=== PATIENT | female | born 1980 | race Caucasian/White ===

== ENCOUNTER 2016-06-23 09:11 | Day surgery (SDC) | payer BC ==
[2016-06-23 09:34] LABS: BASOPHIL 0.9 % (0-2.0); MCH 27.7 pg (25.7-33.7); MCHC 33.3 g/dl (32.0-36.0); MEAN CELL VOLUME 83.2 fl (80-96); MEAN PLT VOLUME 6.4 fl (7.5-11.1); NEUTROPHILS 48.4 % (42.8-82.8); PLATELET COUNT 293 K/MM3 (134-434); RDW 15.8 % (11.6-15.6); WHITE BLOOD COUNT 5.9 K/mm3 (4.0-10.0)
[2016-06-23] MEDS ORDERED: ACETAMINOPHEN 325 MG TABLET (FP) PO ONE (10:00)
[2016-06-23] MEDS ORDERED: SODIUM CHLORIDE 250 ML IV ONE (10:00)
[2016-06-23] MEDS ORDERED: diphenhydrAMINE HCL 25 MG CAPSULE (FP) PO ONE (10:00)
[2016-06-23] MEDS ORDERED: HYDROCORTISONE SOD SUCCINATE 100 MG/2 ML VIAL IVPB ONE (10:00)
[2016-06-23 10:28] LABS: C-REACTIVE PROTEIN 0.6 MG/DL (0.00-0.3); CALCIUM 8.5 mg/dL (8.5-10.1); CREATININE 0.6 mg/dL (0.55-1.02)
[2016-06-23] MEDS ORDERED: INFLIXIMAB IVPB ONE (10:30)
[2016-06-23] MEDS ORDERED: SODIUM CHLORIDE IVPB ONE (10:30)
[2016-06-23 14:29] VITALS: TEMP 98.4
[2016-06-23 15:19] VITALS: BP 108/71; PULSE 86
== END 2016-06-23 16:00 | disposition home or self-care (01) ==
LOC: JINFUSION 09:11 → J7W 09:12 → JINFUSION 16:00
PROVIDERS: ATTEND Internal Medicine Gastroenterology
DX: K51.90 Ulcerative colitis, unspecified, without complications (principal)
CPT/HCPCS: 96361; 96413; 96415; J1745; 36415; 80048; 85025; 86140; 96365; 96366

== ENCOUNTER 2016-07-19 08:00 | Day surgery (SDC) | payer BC ==
[2016-07-19 08:40] VITALS: BMI 28.5
[2016-07-19] MEDS ORDERED: PROPOFOL 20 ML ONE ×2 (08:41)
[2016-07-19 09:52] VITALS: TEMP 98.2
[2016-07-19 09:54] VITALS: BP 101/56
[2016-07-19 10:03] VITALS: PULSE 75
--- NOTE | 2016-07-22 13:21 | PATH ---
Surgical Pathology Report Patient Name: WILLY ALCANTARA [facility]. Rec. #: [id number] /Age/Gender: 1980 (Age: 36) / F Account: [id number] Location: ASU-ENDOSCOPY Taken: 07/19/2016 Received: 07/19/2016 Reported: 07/22/2016 Physicians: Ryan Godfrey M.D. Specimen(s) Received A: BX ILEAL RECTAL ANASTOMOSIS B: BX RECTAL POUCH & POLYP Clinical History Ulcerative colitis Ulcerative proctitis, rectal polyp, normal ileum Final Diagnosis A. ILEAL-RECTAL ANASTOMOSIS, BIOPSY: ULCERATED COLONIC MUCOSA WITH ACTIVE MARKED CHRONIC COLITIS WITH INFLAMED GRANULATION TISSUE AND ARCHITECTURAL DISTORTION. NO EVIDENCE OF GRANULOMATA OR DYSPLASIA B. RECTAL POUCH AND POLYP, BIOPSY: ULCERATED RECTAL MUCOSA WITH ACTIVE MARKED CHRONIC PROCTITIS WITH INFLAMED GRANULATION TISSUE AND ARTIFICIAL DISTORTION. POLYPOID FRAGMENT OF INFLAMED AND ULCERATED GRANULATION TISSUE. NO EVIDENCE OF GRANULOMATA OR DYSPLASIA. Electronically Signed Milton Judge M.D. Gross Description A. Received in formalin, labeled "biopsy ileo-rectal anastomosis" are 2 wood, irregular portions of soft tissue measuring 0.2 and 0.3 cm in greatest dimension. The specimens are submitted in toto in one cassette. B. Received in formalin, labeled "rectal pouch and polyp" are 3 wood, irregular portions of soft tissue ranging from 0.1-0.4 cm in greatest dimension. The specimens are submitted in toto in one cassette. 07/19/201607/19/2016
== END 2016-07-19 10:03 | disposition home or self-care (01) ==
LOC: JASU-ENDO 08:00
PROVIDERS: ATTEND Internal Medicine Gastroenterology
PROC: 0DBP8ZX Excision of Rectum, Via Natural or Artificial Opening Endoscopic, Diagnostic (ICD-10-PCS; principal; 2016-07-19 08:30)
DX: K51.90 Ulcerative colitis, unspecified, without complications (principal); Z98.0 Intestinal bypass and anastomosis status; K62.1 Rectal polyp
CPT/HCPCS: 84703; 88305-TC

== ENCOUNTER 2016-07-20 10:02 | Day surgery (SDC) | payer BC ==
[2016-07-20 11:19] LABS: BASOPHIL 0.4 % (0-2.0); EOSINOPHIL 0.9 % (0-4.5); MCH 27.5 pg (25.7-33.7); MCHC 33.1 g/dl (32.0-36.0); MEAN CELL VOLUME 83.2 fl (80-96); MEAN PLT VOLUME 6.2 fl (7.5-11.1); NEUTROPHILS 56.5 % (42.8-82.8); PLATELET COUNT 327 K/MM3 (134-434); RDW 15.9 % (11.6-15.6); WHITE BLOOD COUNT 7.5 K/mm3 (4.0-10.0)
[2016-07-20] MEDS ORDERED: HYDROCORTISONE SOD SUCCINATE 100 MG/2 ML VIAL IVPB ONE (11:30)
[2016-07-20] MEDS ORDERED: ACETAMINOPHEN 325 MG TABLET (FP) PO ONE (11:30)
[2016-07-20] MEDS ORDERED: diphenhydrAMINE HCL 50 MG CAPSULE PO ONE (11:30)
[2016-07-20 11:42] LABS: CALCIUM 8.9 mg/dL (8.5-10.1); CREATININE 0.5 mg/dL (0.55-1.02)
[2016-07-20] MEDS ORDERED: INFLIXIMAB IVPB ONE (12:00)
[2016-07-20] MEDS ORDERED: SODIUM CHLORIDE IVPB ONE (12:00)
[2016-07-20] MEDS ORDERED: diphenhydrAMINE HCL 25 MG CAPSULE (FP) PO ONE (12:36)
[2016-07-20 14:51] VITALS: TEMP 97.7
[2016-07-20 17:08] VITALS: BP 119/72; PULSE 83
== END 2016-07-20 17:11 | disposition home or self-care (01) ==
LOC: JINFUSION 10:02 → J7W 10:30 → JINFUSION 17:11
PROVIDERS: ATTEND Internal Medicine Gastroenterology
DX: K51.90 Ulcerative colitis, unspecified, without complications (principal)
CPT/HCPCS: 96361; 96413; 96415; J1745; 36415; 80048; 85025

== ENCOUNTER 2016-08-17 09:21 | Day surgery (SDC) | payer BC ==
[2016-08-17 09:53] LABS: BASOPHIL 0.6 % (0-2.0); EOSINOPHIL 2.1 % (0-4.5); MCH 27.7 pg (25.7-33.7); MCHC 33.2 g/dl (32.0-36.0); MEAN CELL VOLUME 83.4 fl (80-96); MEAN PLT VOLUME 6.6 fl (7.5-11.1); NEUTROPHILS 58.7 % (42.8-82.8); PLATELET COUNT 319 K/MM3 (134-434); RDW 15.2 % (11.6-15.6); WHITE BLOOD COUNT 6.6 K/mm3 (4.0-10.0)
[2016-08-17 10:14] LABS: CALCIUM 8.9 mg/dL (8.5-10.1); CREATININE 0.5 mg/dL (0.55-1.02)
[2016-08-17] MEDS ORDERED: ACETAMINOPHEN 500 MG TABLET (FP) PO ONE (10:30)
[2016-08-17] MEDS ORDERED: HYDROCORTISONE SOD SUCCINATE 100 MG/2 ML VIAL IVPB ONE (10:30)
[2016-08-17] MEDS ORDERED: diphenhydrAMINE HCL 25 MG CAPSULE (FP) PO ONE (10:30)
[2016-08-17] MEDS ORDERED: SODIUM CHLORIDE 250 ML IV SCH (10:30)
[2016-08-17] MEDS ORDERED: SODIUM CHLORIDE IVPB ONE (11:00)
[2016-08-17] MEDS ORDERED: INFLIXIMAB IVPB ONE (11:00)
[2016-08-17 15:55] VITALS: BP 108/62
[2016-08-17 15:56] VITALS: PULSE 62; TEMP 98.2
== END 2016-08-17 14:22 | disposition home or self-care (01) ==
LOC: JCHEMO 09:21 → J7W 09:22 → JCHEMO 14:22
PROVIDERS: ATTEND Internal Medicine Gastroenterology
PROC: 3E03305 Introduction of Other Antineoplastic into Peripheral Vein, Percutaneous Approach (ICD-10-PCS; principal; 2016-08-17)
PROC: 3E0337Z Introduction of Electrolytic and Water Balance Substance into Peripheral Vein, Percutaneous Approach (ICD-10-PCS; 2016-08-17)
PROC: 3E033GC Introduction of Other Therapeutic Substance into Peripheral Vein, Percutaneous Approach (ICD-10-PCS; 2016-08-17)
DX: K51.90 Ulcerative colitis, unspecified, without complications (principal)
CPT/HCPCS: 96361; 96367; 96413; 96415; J1720; J1745; J7030; 36415; 80048; 85025; 86140

== ENCOUNTER 2016-09-13 10:02 | Day surgery (SDC) | payer BC ==
[2016-09-13 10:28] LABS: BASOPHIL 0.5 % (0-2.0); MCH 28.5 pg (25.7-33.7); MCHC 33.7 g/dl (32.0-36.0); MEAN CELL VOLUME 84.5 fl (80-96); MEAN PLT VOLUME 6.7 fl (7.5-11.1); NEUTROPHILS 63.2 % (42.8-82.8); PLATELET COUNT 260 K/MM3 (134-434); RDW 15.3 % (11.6-15.6); WHITE BLOOD COUNT 6.3 K/mm3 (4.0-10.0)
[2016-09-13] MEDS ORDERED: SODIUM CHLORIDE 250 ML IV ONE (10:30)
[2016-09-13 10:54] LABS: CALCIUM 9.1 mg/dL (8.5-10.1); COCKROFT - GAULT 183.855; CREATININE 0.5 mg/dL (0.55-1.02)
[2016-09-13] MEDS ORDERED: diphenhydrAMINE HCL 25 MG CAPSULE (FP) PO ONE (11:00)
[2016-09-13] MEDS ORDERED: ACETAMINOPHEN 500 MG TABLET (FP) PO ONE (11:00)
[2016-09-13] MEDS ORDERED: HYDROCORTISONE SOD SUCCINATE 100 MG/2 ML VIAL IVPB ONE (11:00)
[2016-09-13] MEDS ORDERED: SODIUM CHLORIDE IVPB ONE (11:30)
[2016-09-13] MEDS ORDERED: INFLIXIMAB IVPB ONE (11:30)
[2016-09-13 15:58] VITALS: BP 119/76; PULSE 98; TEMP 98.3
== END 2016-09-13 16:03 | disposition home or self-care (01) ==
LOC: JCHEMO 10:02 → J7W 10:13 → JCHEMO 16:03
PROVIDERS: ATTEND Internal Medicine Gastroenterology
DX: K51.90 Ulcerative colitis, unspecified, without complications (principal)
CPT/HCPCS: 96361; 96413; 96415; J1745; 36415; 80048; 85025; 86140

== ENCOUNTER 2016-10-13 09:51 | Day surgery (SDC) | payer BC ==
[2016-10-13] MEDS ORDERED: diphenhydrAMINE HCL 25 MG CAPSULE (FP) PO ONE (11:00)
[2016-10-13] MEDS ORDERED: SODIUM CHLORIDE 250 ML IV SCH (11:00)
[2016-10-13] MEDS ORDERED: ACETAMINOPHEN 500 MG TABLET (FP) PO ONE (11:00)
[2016-10-13] MEDS ORDERED: HYDROCORTISONE SOD SUCCINATE 100 MG/2 ML VIAL IVPB ONE (11:00)
[2016-10-13] MEDS ORDERED: methylPREDNISolone NA SUCC 40 MG/1 ML VIAL IVPB ONE (11:15)
[2016-10-13] MEDS ORDERED: EPINEPHrine 1:1,000 1 MG/1 ML - 30ML VIAL (INJECTION) SQ ONE (11:15)
[2016-10-13 11:16] LABS: C-REACTIVE PROTEIN 0.7 MG/DL (0.00-0.3); CALCIUM 8.8 mg/dL (8.5-10.1); CREATININE 0.6 mg/dL (0.55-1.02)
[2016-10-13] MEDS ORDERED: INFLIXIMAB IVPB ONE (11:30)
[2016-10-13] MEDS ORDERED: SODIUM CHLORIDE IVPB ONE (11:30)
[2016-10-13 12:28] LABS: EOSINOPHIL 0.7 % (0-4.5); RDW 14.7 % (11.6-15.6)
[2016-10-13 12:39] LABS: BASOPHIL 0.8 % (0-2.0); MCH 28.3 pg (25.7-33.7); MCHC 33.6 g/dl (32.0-36.0); MEAN CELL VOLUME 84.4 fl (80-96); MEAN PLT VOLUME 7.8 fl (7.5-11.1); WHITE BLOOD COUNT 9.1 K/mm3 (4.0-10.0)
[2016-10-13 13:42] LABS: PLATELET COMMENT2 NO CLOTTING DETECTED; PLATELET ESTIMATE ADEQUATE (NORMAL)
[2016-10-13 16:07] VITALS: BP 118/71; PULSE 95; TEMP 98.3
== END 2016-10-13 16:10 | disposition home or self-care (01) ==
LOC: J7W 09:51 → JCHEMO 09:51 → J7W 10:48 → JCHEMO 16:10
PROVIDERS: ATTEND Internal Medicine Gastroenterology
DX: K51.90 Ulcerative colitis, unspecified, without complications (principal)
CPT/HCPCS: 36415; 80048; 85025; 86140; 96413; 96415; J1745

== ENCOUNTER 2016-10-28 08:32 | Day surgery (SDC) | payer BC ==
[2016-10-28] MEDS ORDERED: PROPOFOL 20 ML ONE (08:47)
[2016-10-28 09:00] VITALS: BMI 29.3
[2016-10-28 09:34] VITALS: TEMP 97.7
[2016-10-28 10:28] VITALS: BP 117/72; PULSE 78
--- NOTE | 2016-10-29 10:58 | PATH ---
Surgical Pathology Report Patient Name: WILLY ALCANTARA [facility]. Rec. #: [id number] /Age/Gender: 1980 (Age: 36) / F Account: [id number] Location: U-ENDOSCOPY Taken: 10/28/2016 Received: 10/28/2016 Reported: 10/29/2016 Physicians: Ryan Godfrey M.D. Specimen(s) Received A: BX TERMINAL ILEUM B: BX ANASTOMOSIS C: BX RECTUM Clinical History Ulcerative colitis Proctitis Final Diagnosis A. TERMINAL ILEUM, BIOPSY: ILEAL MUCOSA WITH MILD TO MODERATE ARCHITECTURAL DISTORTION. NO EVIDENCE OF ACTIVE INFLAMMATION, GRANULOMATA OR DYSPLASIA. B. ANASTOMOSIS, BIOPSY: COLONIC MUCOSA WITH ACTIVE MODERATE TO MARKED CHRONIC COLITIS WITH INFLAMED GRANULATION TISSUE AND ARCHITECTURAL DISTORTION. NO EVIDENCE OF GRANULOMATA OR DYSPLASIA. C. RECTUM, BIOPSY: RECTAL MUCOSA WITH ACTIVE MARKED CHRONIC PROCTITIS WITH INFLAMED GRANULATION TISSUE AND ARCHITECTURAL DISTORTION. NO EVIDENCE OF GRANULOMATA OR DYSPLASIA. Electronically Signed Milton Judge M.D. Gross Description A. Received in formalin, labeled "biopsy terminal ileum" are 3 wood, irregular portions of soft tissue ranging from 0.3-0.4 cm in greatest dimension. The specimens are submitted in toto in one cassette. B. Received in formalin, labeled "biopsy anastomosis" are 3 wood, irregular portions of soft tissue ranging from 0.2-0.5 cm in greatest dimension. The specimens are submitted in toto in one cassette. C. Received in formalin, labeled "biopsy rectum" are 5 wood, irregular portions of soft tissue ranging from 0.1-0.4 cm in greatest dimension. The specimens are submitted in toto in one cassette. 10/28/201610/28/2016
== END 2016-10-28 10:28 | disposition home or self-care (01) ==
LOC: JASU-ENDO 08:32
PROVIDERS: ATTEND Internal Medicine Gastroenterology
PROC: 0DBP8ZX Excision of Rectum, Via Natural or Artificial Opening Endoscopic, Diagnostic (ICD-10-PCS; 2016-10-28)
PROC: 0DBN8ZX Excision of Sigmoid Colon, Via Natural or Artificial Opening Endoscopic, Diagnostic (ICD-10-PCS; principal; 2016-10-28 09:00)
DX: K51.20 Ulcerative (chronic) proctitis without complications (principal)
CPT/HCPCS: 84703; 88305-TC

== ENCOUNTER 2016-11-20 16:10 | Day surgery (SDC) | payer BC ==
[~2016-11-20 16:10] MED LIST: VEDOLIZUMAB 300 MG in SODIUM CHLORIDE 250 ML IVPB ONE
[2016-11-20] MEDS ORDERED: diphenhydrAMINE HCL 25 MG CAPSULE (FP) PO ONE (16:30)
[2016-11-20] MEDS ORDERED: EPINEPHrine/PF 1 MG/1 ML (1:1,000) AMPULE IV ONE (16:30)
[2016-11-20] MEDS ORDERED: EPINEPHrine 1:1,000 1 MG/1 ML - 30ML VIAL (INJECTION) IVPUSH PRN (16:55)
[2016-11-20] MEDS ORDERED: methylPREDNISolone NA SUCC 40 MG/1 ML VIAL IVPUSH PRN (16:56)
[2016-11-20 17:22] LABS: BASOPHIL 0.4 % (0-2.0); MCH 28.5 pg (25.7-33.7); MCHC 33.8 g/dl (32.0-36.0); MEAN CELL VOLUME 84.3 fl (80-96); MEAN PLT VOLUME 7.2 fl (7.5-11.1); NEUTROPHILS 64.9 % (42.8-82.8); PLATELET COUNT 404 K/MM3 (134-434); RDW 15.1 % (11.6-15.6); WHITE BLOOD COUNT 6.4 K/mm3 (4.0-10.0)
[2016-11-20 17:51] VITALS: BP 124/70; PULSE 83; TEMP 98
[2016-11-20 21:36] LABS: ALBUMIN 3.8 g/dl (3.4-5.0); ALK PHOS 58 U/L (45-117); ANION GAP 12 (8-16); BILIRUBIN,TOTAL 0.4 mg/dL (0.2-1.0); CALCIUM 9.2 mg/dL (8.5-10.1); CO2 22 mmol/L (21-32); CREATININE 0.5 mg/dL (0.55-1.02); GLUCOSE,RANDOM 89 mg/dL (74-106); SGPT/ALT 20 U/L (12-78); TOT PROT 8.9 g/dl (6.4-8.2)
[2016-11-20 21:43] LABS: SGOT/AST 37 U/L (15-37)
[2016-11-21 01:37] LABS: C-REACTIVE PROTEIN 1.8 MG/DL (0.00-0.3)
== END 2016-11-20 18:29 | disposition home or self-care (01) ==
LOC: JCHEMO 16:10 → J7W 16:12 → JCHEMO 18:29
PROVIDERS: ATTEND Internal Medicine Gastroenterology
DX: K51.90 Ulcerative colitis, unspecified, without complications (principal)
CPT/HCPCS: 36415; 80053; 85025; 86140; 96365; 96413; J3380

== ENCOUNTER 2016-12-04 16:28 | Day surgery (SDC) | payer BC ==
[2016-12-04] MEDS ORDERED: diphenhydrAMINE HCL 25 MG CAPSULE (FP) PO ONE (18:00)
[2016-12-04 18:30] VITALS: TEMP 99
[2016-12-04] MEDS ORDERED: VEDOLIZUMAB 300 MG in SODIUM CHLORIDE 250 ML IVPB ONE (18:30)
[2016-12-04 18:51] LABS: BASOPHIL 0.3 % (0-2.0); EOSINOPHIL 0.1 % (0-4.5); MCH 27.9 pg (25.7-33.7); MCHC 32.9 g/dl (32.0-36.0); MEAN CELL VOLUME 84.9 fl (80-96); MEAN PLT VOLUME 6.9 fl (7.5-11.1); NEUTROPHILS 80.4 % (42.8-82.8); PLATELET COUNT 423 K/MM3 (134-434); RDW 14.9 % (11.6-15.6); WHITE BLOOD COUNT 15.2 K/mm3 (4.0-10.0)
[2016-12-04 19:22] LABS: ALBUMIN 3.7 g/dl (3.4-5.0); ANION GAP 6 (8-16); BILIRUBIN,TOTAL 0.2 mg/dL (0.2-1.0); CALCIUM 9.7 mg/dL (8.5-10.1); CO2 29 mmol/L (21-32); CREATININE 0.6 mg/dL (0.55-1.02); GLUCOSE,RANDOM 107 mg/dL (74-106); SGOT/AST 12 U/L (15-37); SGPT/ALT 28 U/L (12-78); TOT PROT 8.5 g/dl (6.4-8.2)
[2016-12-04 19:23] LABS: ALK PHOS 57 U/L (45-117)
[2016-12-04 19:45] VITALS: BP 120/84; PULSE 85
[2016-12-04 21:19] LABS: C-REACTIVE PROTEIN < 0.3 MG/DL (0.00-0.3)
== END 2016-12-04 19:58 | disposition home or self-care (01) ==
LOC: JINFUSION 16:28 → J7W 16:28 → JINFUSION 19:58
PROVIDERS: ATTEND Internal Medicine Gastroenterology
DX: K51.90 Ulcerative colitis, unspecified, without complications (principal)
CPT/HCPCS: 36415; 80053; 85025; 86140; 96413; J3380

== ENCOUNTER 2016-12-15 10:43 | Inpatient (IN) | payer BC ==
[2016-12-15] MEDS ORDERED: VANCOMYCIN 1,000 MG in DEXTROSE 5%-WATER - 250 ML IVPB ONE (11:21)
[2016-12-15] MEDS ORDERED: PIPERACILLIN/TAZOB 3.375 GM/50 ML PRE-DOCKED IV ONE (11:22)
--- NOTE | 2016-12-15 11:22 | PDOC ---
History of Present Illness - General Chief Complaint: Abscess Boil Stated Complaint: ABSCESS BOIL Time Seen by Provider: 12/15/16 11:06 History Source: Patient - History of Present Illness Timing/Duration: reports: other Location: reports: face Past History - Past Medical History Allergies/Adverse Reactions: Allergies Allergy/AdvReac Type Severity Reaction Status Date / Time No Known Allergies Allergy Verified 12/15/16 12:59 Home Medications: Ambulatory Orders Celecoxib 100 mg PO DAILY 12/15/16 Mercaptopurine [Purinethol -] 50 mg PO HS 12/15/16 Pramipexole Di-HCl [Pramipexole Dihydrochloride] 0.25 mg PO HS 12/15/16 Prednisolone 0.12% Ophthalmic [Pred Mild 0.12% -] 1 drop OP TID 12/15/16 Prednisone 10 mg PO DAILY 12/15/16 Prednisone [Deltasone -] 20 mg PO DAILY 12/15/16 Topiramate [Topamax] 50 mg PO BID 12/15/16 Vedolizumab [Entyvio] 300 mg IVPB WEEKLY 12/15/16 Asthma: Yes (BORDERLINE) GI Disorders: Yes (ULCERATIVE COLITIS) Kidney Stones: Yes - Surgical History Abdominal Surgery: (PROCTOCOLECTOMY WITH [facility]) - Psycho/Social/Smoking Cessation Hx Anxiety: No Suicidal Ideation: No Smoking History: Never smoked Have you smoked in the past 12 months: No Information on smoking cessation initiated: No Hx Alcohol Use: Yes (SOCIAL) Drug/Substance Use Hx: No Substance Use Type: None Hx Substance Use Treatment: No Review of Systems - Review of Systems Constitutional: No: Chills, Fever ABD/GI: No: Nausea, Vomiting, Abdominal cramping Integumentary: Yes: Other (abscess) *Physical Exam - Vital Signs Last Vital Signs Temp Pulse Resp BP Pulse Ox 98.2 F 101 H 18 128/81 99 12/15/16 10:46 12/15/16 10:46 12/15/16 10:46 12/15/16 10:46 12/15/16 10:46 - Physical Exam General Appearance: Yes: Appropriately Dressed. No: Apparent Distress HEENT: positive: Normal Voice Neck: positive: Supple Respiratory/Chest: negative: Respiratory Distress Gastrointestinal/Abdominal: positive: Soft. 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 No f/c/n/v See exam Recurrent facial abscess in immunocompromised pt +MRSA on prior cxs per pt Stable in ED -labs -plastics c/s -admit for IV abx 12/15/16 11:28 12/15/16 11:59 Case d/w Dr Jung (covering for Dr Abreu), pt admitted. 12/15/16 18:02 Pt upstairs. Plastics never returned call but consult placed *DC/Admit/Observation/Transfer Diagnosis at time of Disposition: Facial abscess - Discharge Dispostion Condition at time of disposition: Fair Admit: Yes
[2016-12-15] MEDS ORDERED: VANCOMYCIN 1 GRAM (PRE-DOCKED) 250 ML IVPB ONE (12:41)
[2016-12-15 12:50] LABS: BASOPHIL 0.6 % (0-2.0); EOSINOPHIL 0.5 % (0-4.5); MCH 28.7 pg (25.7-33.7); MEAN PLT VOLUME 6.6 fl (7.5-11.1); NEUTROPHILS 77.4 % (42.8-82.8); PLATELET COUNT 331 K/MM3 (134-434); RDW 15.7 % (11.6-15.6); WHITE BLOOD COUNT 13.8 K/mm3 (4.0-10.0)
[2016-12-15 13:00] LABS: INR 0.88 (0.82-1.09); PROTHROMBIN TIME (PATIENT) 9.6 SEC (9.98-11.88)
[2016-12-15 13:11] LABS: ALBUMIN 3.4 g/dl (3.4-5.0); ALK PHOS 63 U/L (45-117); ANION GAP 9 (8-16); BILIRUBIN,TOTAL 0.3 mg/dL (0.2-1.0); CALCIUM 8.8 mg/dL (8.5-10.1); CO2 26 mmol/L (21-32); CREATININE 0.8 mg/dL (0.55-1.02); GLUCOSE,RANDOM 103 mg/dL (74-106); SGOT/AST 12 U/L (15-37); SGPT/ALT 34 U/L (12-78); TOT PROT 7.7 g/dl (6.4-8.2)
[2016-12-15] MEDS ORDERED: PIPERACILLIN/TAZOB 3.375 GM 50 ML IVPB ONE (13:23)
--- NOTE | 2016-12-15 13:24 | PN ---
Progress Note (short form) - Note Progress Note: ID Consult dictated Forehead soft tissue abscess Early periorbital cellulitis Hx MRSA abscess UC on immunosuppressive tx Surgical evaluation Empiric vancomycin /Unasyn
[2016-12-15] MEDS ORDERED: VANCOMYCIN 1,000 MG in DEXTROSE 5%-WATER - 250 ML IVPB SCH (13:30)
[2016-12-15] MEDS ORDERED: POTASSIUM CHLORIDE TABS 20 MEQ TABLET.ER (FP) PO ONE (14:15)
[2016-12-15] MEDS: AMPICILLIN NA/SULBACTAM NA 3 GM in SODIUM CHLORIDE 100 ML IVPB SCH ×2 (15:40→17:02)
[2016-12-15] MEDS: LACTOBACILLUS ACIDOPHILUS 1 EACH TAB (FP) PO SCH (15:41)
[2016-12-15] MEDS: SODIUM CHLORIDE 0.45%/POT 1,000 ML IV SCH (15:41)
[2016-12-15 16:08] VITALS: BMI 31.4
[2016-12-15] MEDS ORDERED: LIDOCAINE HCL 1%, 10 MG/ML (20ML VIAL) ONE (18:10)
--- NOTE | 2016-12-15 18:57 | CONSULT ---
Consult Consult Specialty:: Plastic Surgery Reason for Consultation:: Abscess Forehead - Past Medical History ...LMP: 12/06/16 ...: No - Alcohol/Substance Use Hx Alcohol Use: Yes (SOCIAL) - Smoking History Smoking history: Never smoked Have you smoked in the past 12 months: No Home Medications - Allergies Allergies/Adverse Reactions: Allergies Allergy/AdvReac Type Severity Reaction Status Date / Time No Known Allergies Allergy Verified 12/15/16 12:59 - Home Medications Home Medications: Ambulatory Orders Celecoxib 100 mg PO DAILY 12/15/16 Mercaptopurine [Purinethol -] 50 mg PO HS 12/15/16 Pramipexole Di-HCl [Pramipexole Dihydrochloride] 0.25 mg PO HS 12/15/16 Prednisolone 0.12% Ophthalmic [Pred Mild 0.12% -] 1 drop OP TID 12/15/16 Prednisone 10 mg PO DAILY 12/15/16 Prednisone [Deltasone -] 20 mg PO DAILY 12/15/16 Topiramate [Topamax] 50 mg PO BID 12/15/16 Vedolizumab [Entyvio] 300 mg IVPB WEEKLY 12/15/16 Physical Exam Vital Signs: Vital Signs Temperature 98.2 F 12/15/16 15:59 Pulse Rate 95 H 12/15/16 15:59 Respiratory Rate 18 12/15/16 15:59 Blood Pressure 116/61 12/15/16 15:59 O2 Sat by Pulse Oximetry (%) 99 12/15/16 16:30 Labs: CBC, BMP 12/15/16 12:43 12/15/16 12:43 Assessment/Plan 36 yo woman with an abscess of the forehead. She has a history of ulcerative colitis and is s/p total colectomy. She is on multiple meds with multiple persistent symptoms related to immunosupression because of these meds. 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 She now presents with a large abscess of the upper forehead just to the left of the midline. Plan: Incision and drainage at bedside.
--- NOTE | 2016-12-15 19:00 | OP ---
Operative Note - Note: Operative Date: 12/15/16 Pre-Operative Diagnosis: Abscess of Forehead Operation: Incision and Drainage Large Forehead Abscess, Packing with Iodoform Surgeon: Jere Juarez Specimens Removed: Wound culture sent Drains & Tubes with Location: 05/29" Iodoform Packing placed Operative Report Dictated: No
[2016-12-15 19:29] LABS: URINE APPEARANCE CLEAR; URINE BILIRUBIN NEGATIVE (NEGATIVE); URINE BLOOD 1+ (NEGATIVE); URINE COLOR STRAW; URINE GLUCOSE (UA) NEGATIVE (NEGATIVE); URINE KETONE NEGATIVE (NEGATIVE); URINE NITRITE NEGATIVE (NEGATIVE); URINE PROTEIN NEGATIVE (NEGATIVE); URINE UROBILINOGEN NEGATIVE mg/dL (0.2-1.0)
[2016-12-15 19:30] LABS: URINE LEUK ESTERASE 3+ (NEGATIVE)
[2016-12-15 19:34] LABS: URINE BACTERIA RARE /hpf (NONE SEEN); URINE RBC 1 /hpf (0-3); URINE WBC 21 /hpf (3-5)
[2016-12-15] MEDS ORDERED: PT OWN MED DRAWER 7, Y5N ONE (21:12)
[2016-12-15] MEDS: TOPIRAMATE 25 MG TABLET (FP) PO SCH (21:48)
[2016-12-15] MEDS: HEPARIN NA (PORCINE) 5,000 UNITS/ML 1ML VIAL SQ SCH (21:49)
[2016-12-15] MEDS: MERCAPTOPURINE 50 MG TABLET PO SCH (21:49)
[2016-12-16] MEDS: VANCOMYCIN 1 GRAM (PRE-DOCKED) 250 ML IVPB SCH ×2 (00:18→14:35)
[2016-12-16] MEDS: AMPICILLIN NA/SULBACTAM NA 3 GM in SODIUM CHLORIDE 100 ML IVPB SCH ×3 (01:55→17:47)
[2016-12-16 08:16] LABS: BASOPHIL 0.2 % (0-2.0); EOSINOPHIL 0.4 % (0-4.5); MCH 28.4 pg (25.7-33.7); MCHC 32.8 g/dl (32.0-36.0); MEAN CELL VOLUME 86.6 fl (80-96); MEAN PLT VOLUME 6.6 fl (7.5-11.1); NEUTROPHILS 71.5 % (42.8-82.8); PLATELET COUNT 287 K/MM3 (134-434); RDW 15.6 % (11.6-15.6); WHITE BLOOD COUNT 11.1 K/mm3 (4.0-10.0)
[2016-12-16 08:36] LABS: ALBUMIN 2.8 g/dl (3.4-5.0); ALK PHOS 45 U/L (45-117); ANION GAP 9 (8-16); BILIRUBIN,TOTAL 0.2 mg/dL (0.2-1.0); CALCIUM 8.7 mg/dL (8.5-10.1); CO2 22 mmol/L (21-32); CREATININE 0.5 mg/dL (0.55-1.02); GLUCOSE,RANDOM 88 mg/dL (74-106); PHOSPHOROUS 3.5 mg/dL (2.5-4.9); SGOT/AST 9 U/L (15-37); SGPT/ALT 27 U/L (12-78); TOT PROT 6.5 g/dl (6.4-8.2)
--- NOTE | 2016-12-16 09:32 | EKG ---
Test Reason : Blood Pressure : / mmHG Vent. Rate : 085 BPM Atrial Rate : 085 BPM P-R Int : 114 ms QRS Dur : 090 ms QT Int : 378 ms P-R-T Axes : 032 054 029 degrees QTc Int : 449 ms NORMAL SINUS RHYTHM NORMAL ECG NO PREVIOUS ECGS AVAILABLE Confirmed by JANELL FIELDS, LUIGI ([id number]) on 12/16/2016 9:32:28 AM Referred By: DAGMAR HIGGINS Confirmed By:LUIGI MACIEL MD
[2016-12-16] MEDS ORDERED: PT OWN MED DRAWER 7, Y5N ONE ×4 (10:16→21:39)
[2016-12-16] MEDS: SODIUM CHLORIDE 0.45%/POT 1,000 ML IV SCH ×2 (10:18→22:39)
[2016-12-16] MEDS: TOPIRAMATE 25 MG TABLET (FP) PO SCH ×2 (10:19→22:40)
[2016-12-16] MEDS: LACTOBACILLUS ACIDOPHILUS 1 EACH TAB (FP) PO SCH (10:19)
[2016-12-16] MEDS: predniSONE 10 MG TABLET (UD) PO SCH (10:19)
[2016-12-16] MEDS: HEPARIN NA (PORCINE) 5,000 UNITS/ML 1ML VIAL SQ SCH ×3 (10:20→22:46)
[2016-12-16] MEDS: CELECOXIB 100 MG CAPSULE PO SCH (10:21)
--- NOTE | 2016-12-16 12:17 | CONS ---
DATE OF CONSULTATION: HISTORY: This is a 36-year-old female with a history of MRSA soft tissue infections and history of ulcerative colitis on immunosuppressive therapy now evaluated for forehead abscess. She reports that several days ago she developed a pustular lesion on the forehead. It got progressively more red and swollen despite outpatient oral antibiotic treatment with clindamycin. She now presents with marked swelling on the forehead as well as development of periorbital edema. She was seen in the emergency room and is now being admitted for further treatment. She denies any associated fever or chills. No complaints of any change in her visual acuity or eye pain. The patient has had a history of soft tissue abscesses in the past involving the right perauricular area and left axillary area. She reports having a culture positive for MRSA as an outpatient. She generally treats soft tissue infections with bacitracin with resolution. The patient has a history of ulcerative colitis and is on Entyvio. In addition, she is taking prednisone 30 mg daily for iritis. She also takes mercaptopurine. PAST MEDICAL HISTORY: Positive for ulcerative colitis. PAST SURGICAL HISTORY: Status post proctocolectomy with pouch. ALLERGIES: No known allergies. MEDICATIONS: Tylenol, Imodium, Ventolin, Sudafed, Topamax. 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 Negative tobacco, alcohol, or illicit drug use. SYSTEMS REVIEW: Neurologic: No loss of consciousness, seizure activity, focal weakness. Cardiac: Negative chest pain or palpitations. Respiratory: Negative cough or sputum production. Gastrointestinal: As per HPI. Genitourinary: Negative for urinary tract infection. LABORATORY DATA: White count pending at the time of this dictation. Creatinine 0.6. Blood cultures pending. PHYSICAL EXAMINATION: General: She is awake and alert. She is not acutely toxic appearing. Vital Signs: Temperature 98.2, blood pressure 128/81, pulse 101 and regular, respirations 18 per minute. HEENT: Sclerae anicteric. There is an approximately 3 cm fluctuant soft tissue swelling on the mid forehead with erythema and tenderness. No expressible pus. There is mild bilateral periorbital edema and faint erythema. Extraocular muscles are intact. Her visual acuity is intact. Neck: Supple. No palpable nodes. Heart: Sounds S1, S2. Lungs: Clear. Abdomen: Soft. No tenderness elicited. Extremities: Negative for edema. IMPRESSION: 1. Forehead soft tissue abscess. 2. Early periorbital cellulitis. 3. History of methicillin-resistant Staphylococcus aureus soft tissue infection. 4. Ulcerative colitis on immunosuppressive therapy. Agree with surgical evaluation pending cultures and empiric antibiotic coverage with vancomycin and Unasyn. Warm compresses. Analgesics. We will follow. Thank you for the kind referral. ISAIAH LU M.D. STEPH/[id number]
--- NOTE | 2016-12-16 13:43 | PN ---
Progress Note, Physician History of Present Illness: S/P I&D forehead abscess Cultures pending No c/o pain No fever/ chills - Current Medication List Current Medications: Active Medications Celecoxib (Celebrex -) 100 mg PO DAILY [facility] Last Admin: 12/16/16 10:21 Dose: 100 mg Heparin Sodium (Porcine) (Heparin -) 5,000 unit SQ BID [facility] Last Admin: 12/16/16 10:20 Dose: 5,000 unit Ampicillin Sodium/Sulbactam (Sodium 3 gm/ Sodium Chloride) 100 mls @ 200 mls/ hr IVPB Q8H-IV [facility] Last Admin: 12/16/16 10:22 Dose: 200 mls/hr Vancomycin HCl (Vancomycin (Pre-Docked)) 250 mls @ 200 mls/hr IVPB BID@0100, 1300 [facility] Last Admin: 12/16/16 00:18 Dose: 200 mls/hr Potassium Chloride/Sodium Chloride (1/2ns+20meq Kcl) 1,000 mls @ 75 mls/hr IV ASDIR [facility] Last Admin: 12/16/16 10:18 Dose: 75 mls/hr Lactobacillus Acidophilus (Bacid -) 1 tab PO DAILY [facility] Last Admin: 12/16/16 10:19 Dose: 1 tab Mercaptopurine (Purinethol -) 50 mg PO HS [facility] Last Admin: 12/15/16 21:49 Dose: 50 mg Pramipexole Dihydrochloride (Mirapex -) 0.25 mg PO HS [facility] Prednisone (Deltasone -) 30 mg PO DAILY [facility] Last Admin: 12/16/16 10:19 Dose: 30 mg Topiramate (Topamax -) 50 mg PO BID [facility] Last Admin: 12/16/16 10:19 Dose: 50 mg - Objective Vital Signs: Vital Signs Temperature 97.8 F 12/16/16 09:00 Pulse Rate 95 H 12/16/16 09:00 Respiratory Rate 20 12/16/16 09:00 Blood Pressure 103/76 12/16/16 09:00 O2 Sat by Pulse Oximetry (%) 98 12/16/16 09:00 Constitutional: Yes: No Distress Eyes: Yes: Conjunctiva Clear HENT: Yes: Other (forehead incisional wound with packing decreased periorbital swelling) Cardiovascular: Yes: Regular Rate and Rhythm, S1, S2 Respiratory: Yes: CTA Bilaterally Edema: No Labs: CBC, BMP 12/16/16 06:00 12/16/16 06:00 INR, PTT INR 0.88 (0.82-1.09) 12/15/16 12:43 Assessment/Plan S/P I&D forehead abscess Periorbital cellluitis- improved Hx MRSA Immunocompromised state ( prednisone/ anti-TNF) Await c/s Continue IV antibiotics additional 24h
--- NOTE | 2016-12-16 16:44 | HP ---
Admitting History and Physical - Primary Care Physician PCP: Melquiades Schmidt - Admission Chief Complaint: ABSCESS ON FOREHEAD History of Present Illness: 36 Y/O FEMALE HISTORY OF LUPUS, ULCERATIVE COLITIS DEVELOPED A PROGRESSIVELY ENLARGED ABSCESS TO FORHEAD THAT WAS INCISED AND DRAINED IN THE OPERATING ROOM. IV ABX GIVEN, HISTORY OF MRSA WITH RECURRENT ABSCESSES. History Source: Patient - Past Medical History Gastrointestinal: Yes: Inflamatory Bowel Disease ...LMP: 12/06/16 ...: No Rheumatology: Yes: Lupus - Smoking History Smoking history: Never smoked Have you smoked in the past 12 months: No - Alcohol/Substance Use Hx Alcohol Use: Yes (SOCIAL) Home Medications - Allergies Allergies/Adverse Reactions: Allergies Allergy/AdvReac Type Severity Reaction Status Date / Time No Known Allergies Allergy Verified 12/15/16 12:59 - Home Medications Home Medications: Ambulatory Orders Celecoxib 100 mg PO DAILY 12/15/16 Mercaptopurine [Purinethol -] 50 mg PO HS 12/15/16 Pramipexole Di-HCl [Pramipexole Dihydrochloride] 0.25 mg PO HS 12/15/16 Prednisolone 0.12% Ophthalmic [Pred Mild 0.12% -] 1 drop OP TID 12/15/16 Prednisone 10 mg PO DAILY 12/15/16 Prednisone [Deltasone -] 20 mg PO DAILY 12/15/16 Topiramate [Topamax] 50 mg PO BID 12/15/16 Vedolizumab [Entyvio] 300 mg IVPB WEEKLY 12/15/16 Review of Systems - Review of Systems Constitutional: reports: No Symptoms Eyes: reports: No Symptoms HENT: reports: Other (WOUND DRESSING) Neck: reports: No Symptoms Cardiovascular: reports: No Symptoms Respiratory: reports: No Symptoms Gastrointestinal: reports: No Symptoms Genitourinary: reports: No Symptoms Musculoskeletal: reports: No Symptoms Integumentary: reports: Wound Neurological: reports: No Symptoms Endocrine: reports: No Symptoms Hematology/Lymphatic: reports: No Symptoms Physical Examination Vital Signs: Vital Signs Temperature 98.5 F 12/16/16 13:58 Pulse Rate 97 H 12/16/16 13:58 Respiratory Rate 20 12/16/16 13:58 Blood Pressure 135/84 12/16/16 13:58 O2 Sat by Pulse Oximetry (%) 98 12/16/16 09:00 Constitutional: Yes: No Distress Eyes: Yes: WNL HENT: Yes: WNL, Other (WOUND DRESSING NO DRAINAGE) Cardiovascular: Yes: WNL Respiratory: Yes: WNL Gastrointestinal: Yes: WNL Renal/: Yes: WNL Musculoskeletal: Yes: WNL Extremities: Yes: WNL Edema: No Peripheral Pulses WNL: Yes Integumentary: Yes: Other Wound/Incision: Yes: Dressing Dry and Intact Neurological: Yes: WNL ...Motor Strength: WNL Psychiatric: Yes: WNL Labs: CBC, BMP 12/16/16 06:00 12/16/16 06:00 Problem List - Problems (1) Facial abscess Code(s): L02.01 - CUTANEOUS ABSCESS OF FACE (2) Lupus (systemic lupus erythematosus) Code(s): M32.9 - SYSTEMIC LUPUS ERYTHEMATOSUS, UNSPECIFIED Qualifiers: Systemic lupus erythematosus type: other Systemic lupus erythematosus organ involvement: unspecified Qualified Code(s): M32.8 - Other forms of systemic lupus erythematosus (3) Ulcerative colitis Code(s): K51.90 - ULCERATIVE COLITIS, UNSPECIFIED, WITHOUT COMPLICATIONS Qualifiers: Ulcerative colitis location: unspecified ulcerative colitis location Digestive disease complication type: unspecified complication Qualified Code(s): K51.919 - Ulcerative colitis, unspecified with unspecified complications Assessment/Plan D COMPLETED ON O.R. IV ABX ID CONSULT PLASTIC SX APPRECIATED
[2016-12-16] MEDS ORDERED: ACETAMINOPHEN 325 MG TABLET (FP) PO PRN (16:47)
[2016-12-16] MEDS ORDERED: PRAMIPEXOLE DIHYDROCHLORIDE 0.25 MG TABLET PO SCH (22:00)
[2016-12-16] MEDS: MERCAPTOPURINE 50 MG TABLET PO SCH (22:40)
[2016-12-17] MEDS: VANCOMYCIN 1 GRAM (PRE-DOCKED) 250 ML IVPB SCH ×2 (00:26→13:20)
[2016-12-17] MEDS ORDERED: PT OWN MED DRAWER 7, Y5N ONE ×2 (02:45→09:34)
[2016-12-17] MEDS: AMPICILLIN NA/SULBACTAM NA 3 GM in SODIUM CHLORIDE 100 ML IVPB SCH ×3 (02:59→11:42)
[2016-12-17] MEDS: SODIUM CHLORIDE 0.45%/POT 1,000 ML IV SCH (03:23)
[2016-12-17] MEDS: predniSONE 10 MG TABLET (UD) PO SCH (09:37)
[2016-12-17] MEDS: HEPARIN NA (PORCINE) 5,000 UNITS/ML 1ML VIAL SQ SCH (09:37)
[2016-12-17] MEDS: LACTOBACILLUS ACIDOPHILUS 1 EACH TAB (FP) PO SCH (09:37)
[2016-12-17] MEDS: CELECOXIB 100 MG CAPSULE PO SCH ×2 (09:37→11:43)
[2016-12-17] MEDS: TOPIRAMATE 25 MG TABLET (FP) PO SCH (09:37)
[2016-12-17 10:15] VITALS: BP 101/74; PULSE 96; TEMP 98.4
--- NOTE | 2016-12-17 12:39 | PN ---
Progress Note, Physician History of Present Illness: awaker, alert no c/o pain at present no fever/ chills periorbital swelling resolved wound c/s presumptive MRSA - Current Medication List Current Medications: Active Medications Acetaminophen (Tylenol -) 650 mg PO Q6H PRN PRN Reason: FEVER OR PAIN Celecoxib (Celebrex -) 100 mg PO DAILY [facility] Last Admin: 12/17/16 11:43 Dose: 100 mg Heparin Sodium (Porcine) (Heparin -) 5,000 unit SQ BID [facility] Last Admin: 12/17/16 09:37 Dose: Not Given Ampicillin Sodium/Sulbactam (Sodium 3 gm/ Sodium Chloride) 100 mls @ 200 mls/ hr IVPB Q8H-IV [facility] Last Admin: 12/17/16 11:42 Dose: 200 mls/hr Vancomycin HCl (Vancomycin (Pre-Docked)) 250 mls @ 200 mls/hr IVPB BID@0100, 1300 [facility] Last Admin: 12/17/16 00:26 Dose: 200 mls/hr Potassium Chloride/Sodium Chloride (1/2ns+20meq Kcl) 1,000 mls @ 75 mls/hr IV ASDIR [facility] Last Admin: 12/17/16 03:23 Dose: 75 mls/hr Lactobacillus Acidophilus (Bacid -) 1 tab PO DAILY [facility] Last Admin: 12/17/16 09:37 Dose: 1 tab Mercaptopurine (Purinethol -) 50 mg PO HS [facility] Last Admin: 12/16/16 22:40 Dose: 50 mg Pramipexole Dihydrochloride (Mirapex -) 0.25 mg PO [facility] Last Admin: 12/16/16 22:40 Dose: 0.25 mg Prednisone (Deltasone -) 30 mg PO DAILY [facility] Last Admin: 12/17/16 09:37 Dose: 30 mg Topiramate (Topamax -) 50 mg PO BID [facility] Last Admin: 12/17/16 09:37 Dose: 50 mg - Objective Vital Signs: Vital Signs Temperature 98.4 F 12/17/16 10:15 Pulse Rate 96 H 12/17/16 10:15 Respiratory Rate 20 12/17/16 10:15 Blood Pressure 101/74 12/17/16 10:15 O2 Sat by Pulse Oximetry (%) 98 12/17/16 09:00 Constitutional: Yes: No Distress Eyes: Yes: Conjunctiva Clear HENT: Yes: Other (forehead incisional wound with packing in place + small amt expressible pus from wound) Cardiovascular: Yes: Regular Rate and Rhythm, S1, S2 Respiratory: Yes: CTA Bilaterally Edema: No Labs: CBC, BMP 12/16/16 06:00 12/16/16 06:00 INR, PTT INR 0.88 (0.82-1.09) 12/15/16 12:43 Assessment/Plan S/P I&D forehead abscess presumed MRSA Periorbital cellluitis- improved Immunocompromised state ( prednisone/ anti-TNF) Await final c/s May substitute Bactrim DS po bid x 7d Surgical follow up for wound care
--- NOTE | 2016-12-17 14:33 | DS ---
Physical Examination Vital Signs: Vital Signs Temperature 98.4 F 12/17/16 10:15 Pulse Rate 96 H 12/17/16 10:15 Respiratory Rate 20 12/17/16 10:15 Blood Pressure 101/74 12/17/16 10:15 O2 Sat by Pulse Oximetry (%) 98 12/17/16 09:00 Constitutional: Yes: No Distress Eyes: Yes: WNL HENT: Yes: Other (FOREHEAD ABSCESS DRAINED WITH DRESSING) Cardiovascular: Yes: WNL Respiratory: Yes: WNL Gastrointestinal: Yes: WNL Renal/: Yes: WNL Musculoskeletal: Yes: WNL Extremities: Yes: WNL Edema: No Peripheral Pulses WNL: Yes Integumentary: Yes: WNL Wound/Incision: Yes: Clean/Dry, Dressing Dry and Intact Neurological: Yes: WNL ...Motor Strength: WNL Psychiatric: Yes: WNL Labs: CBC, BMP 12/16/16 06:00 12/16/16 06:00 Discharge Summary Reason For Visit: FACIAL ABSCESS Current Active Problems Facial abscess (Acute) Lupus (systemic lupus erythematosus) (Acute) Ulcerative colitis (Acute) Procedures: Principal: INCISION AND DRAINAGE OF ABSCESS Other Procedures: LABS/CX Hospital Course: ADMITTED FOR I AND D, DRESSING CHANGED, AWAIT CX, WILL F/U OUT PATIENT CONTINUE BACTRIM DS BID 7 DAYS Condition: Fair - Instructions Diet, Activity, Other Instructions: FOLLOW WITH PMD IN 2 DAYS TO REVIEW CULTURES BACTRIM DS BID 7 DAYS Referrals: Susan Abreu [Primary Care Provider] - Disposition: HOME - Home Medications Comprehensive Discharge Medication List: Ambulatory Orders Celecoxib 100 mg PO DAILY 12/15/16 Mercaptopurine [Purinethol -] 50 mg PO HS 12/15/16 Pramipexole Di-HCl [Pramipexole Dihydrochloride] 0.25 mg PO HS 12/15/16 Prednisolone 0.12% Ophthalmic [Pred Mild 0.12% -] 1 drop OP TID 12/15/16 Prednisone 10 mg PO DAILY 12/15/16 Prednisone [Deltasone -] 20 mg PO DAILY 12/15/16 Topiramate [Topamax] 50 mg PO BID 12/15/16 Vedolizumab [Entyvio] 300 mg IVPB WEEKLY 12/15/16
[2016-12-17] MEDS ORDERED: SULFAMETHOXAZOLE/TRIMETHOPRIM 800MG/160MG D.S. TABLET PO SCH (22:00)
== END 2016-12-17 17:32 | disposition home or self-care (01) | DRG 603 ==
LOC: JER 10:43 → JERBED 12:12 → J8W 14:47
PROVIDERS: ADMIT Family Medicine; ATTEND Family Medicine
PROC: 0W9 Anatomical Regions, General, Drainage (ICD-10-PCS; principal; 2016-12-15)
DX: L02.01 Cutaneous abscess of face (principal); L03.213 Periorbital cellulitis; K51.80 Other ulcerative colitis without complications; Z86.14 Personal history of Methicillin resistant Staphylococcus aureus infection; M32.8 Other forms of systemic lupus erythematosus; T45.1X5A Adverse effect of antineoplastic and immunosuppressive drugs, initial encounter; Y92.89 Other specified places as the place of occurrence of the external cause
CPT/HCPCS: 36415; 80053; 81003; 81015; 83036; 84100; 84703; 85025; 85610; 86850; 86900; 86901; 87040; 87070; 87186; 87205; 93005; 93010; 99282-25; J1644; J3480

== ENCOUNTER 2017-01-01 12:21 | Day surgery (SDC) | payer BC ==
[2017-01-01] MEDS ORDERED: diphenhydrAMINE HCL 25 MG CAPSULE (FP) PO ONE (15:00)
[2017-01-01] MEDS ORDERED: VEDOLIZUMAB 300 MG in SODIUM CHLORIDE 250 ML IVPB ONE (15:30)
[2017-01-01 17:03] LABS: MCH 29.3 pg (25.7-33.7); MCHC 34.1 g/dl (32.0-36.0); MEAN PLT VOLUME 6.9 fl (7.5-11.1); PLATELET COUNT 369 K/MM3 (134-434); RDW 15.9 % (11.6-15.6); WHITE BLOOD COUNT 9.9 K/mm3 (4.0-10.0)
[2017-01-01 17:42] VITALS: BP 115/85; PULSE 98; TEMP 98.5
[2017-01-01 18:49] LABS: ALBUMIN 3.7 g/dl (3.4-5.0); ALK PHOS 63 U/L (45-117); ANION GAP 12 (8-16); BILIRUBIN,TOTAL 0.3 mg/dL (0.2-1.0); CO2 24 mmol/L (21-32); CREATININE 0.8 mg/dL (0.55-1.02); GLUCOSE,RANDOM 108 mg/dL (74-106); SGPT/ALT 36 U/L (12-78); TOT PROT 8.2 g/dl (6.4-8.2)
[2017-01-01 19:03] LABS: SGOT/AST 23 U/L (15-37)
== END 2017-01-01 17:44 | disposition home or self-care (01) ==
LOC: JCHEMO 12:21 → J7W 12:22 → JCHEMO 17:44
PROVIDERS: ATTEND Internal Medicine Gastroenterology
DX: K51.90 Ulcerative colitis, unspecified, without complications (principal)
CPT/HCPCS: 36415; 80053; 85027; 86140; 96413; J3380

== ENCOUNTER 2017-02-26 14:07 | Day surgery (SDC) | payer BC ==
[2017-02-26 16:36] VITALS: TEMP 99.1
[2017-02-26] MEDS ORDERED: VEDOLIZUMAB 300 MG in SODIUM CHLORIDE 250 ML IVPB ONE (17:00)
[2017-02-26] MEDS ORDERED: diphenhydrAMINE HCL 25 MG CAPSULE (FP) PO ONE (17:00)
[2017-02-26 17:16] LABS: BASOPHIL 0.5 % (0-2.0); MCHC 33.7 g/dl (32.0-36.0); MEAN CELL VOLUME 86.1 fl (80-96); MEAN PLT VOLUME 6.6 fl (7.5-11.1); PLATELET COUNT 395 K/MM3 (134-434); RDW 15.6 % (11.6-15.6); WHITE BLOOD COUNT 10.6 K/mm3 (4.0-10.0)
[2017-02-26 17:31] LABS: ALBUMIN 3.5 g/dl (3.4-5.0); ALK PHOS 55 U/L (45-117); ANION GAP 7 (8-16); BILIRUBIN,TOTAL 0.3 mg/dL (0.2-1.0); CALCIUM 9.2 mg/dL (8.5-10.1); CO2 25 mmol/L (21-32); CREATININE 1.1 mg/dL (0.55-1.02); GLUCOSE,RANDOM 123 mg/dL (74-106); SGOT/AST 17 U/L (15-37); SGPT/ALT 41 U/L (12-78); TOT PROT 7.9 g/dl (6.4-8.2)
[2017-02-26 18:29] VITALS: BP 116/76; PULSE 97
== END 2017-02-26 18:32 | disposition home or self-care (01) ==
LOC: JASU-SURG 14:07 → J7W 14:42 → JASU-SURG 18:32
PROVIDERS: ATTEND Internal Medicine Gastroenterology
DX: K51.90 Ulcerative colitis, unspecified, without complications (principal)
CPT/HCPCS: 36415; 80053; 85025; 86140; 96365; 96417; J3380

== ENCOUNTER 2017-04-23 16:17 | Day surgery (SDC) | payer BC ==
[~2017-04-23 16:17] MED LIST changes: +EPINEPHrine/PF 1 MG/1 ML (1:1,000) AMPULE IV PRN; -VEDOLIZUMAB 300 MG in SODIUM CHLORIDE 250 ML IVPB ONE; +diphenhydrAMINE HCL 25 MG CAPSULE (FP) PO ONE; +methylPREDNISolone NA SUCC 40 MG/1 ML VIAL IVPUSH PRN
[2017-04-23] MEDS ORDERED: VEDOLIZUMAB 300 MG in SODIUM CHLORIDE 250 ML IVPB ONE (16:30)
[2017-04-23 17:27] LABS: BASOPHIL 0.4 % (0-2.0); EOSINOPHIL 0.1 % (0-4.5); MCH 28.9 pg (25.7-33.7); MCHC 33.4 g/dl (32.0-36.0); MEAN CELL VOLUME 86.4 fl (80-96); MEAN PLT VOLUME 6.6 fl (7.5-11.1); NEUTROPHILS 71.2 % (42.8-82.8); PLATELET COUNT 341 K/MM3 (134-434); RDW 15.1 % (11.6-15.6); WHITE BLOOD COUNT 9.1 K/mm3 (4.0-10.0)
[2017-04-23 17:53] LABS: ALBUMIN 3.5 g/dl (3.4-5.0); ALK PHOS 57 U/L (45-117); ANION GAP 9 (8-16); BILIRUBIN,TOTAL 0.3 mg/dL (0.2-1.0); CALCIUM 8.7 mg/dL (8.5-10.1); CO2 24 mmol/L (21-32); CREATININE 0.7 mg/dL (0.55-1.02); GLUCOSE,RANDOM 123 mg/dL (74-106); SGOT/AST 14 U/L (15-37); SGPT/ALT 50 U/L (12-78); TOT PROT 7.7 g/dl (6.4-8.2)
[2017-04-23 18:59] VITALS: TEMP 98
[2017-04-23 19:03] VITALS: BP 108/76; PULSE 102
== END 2017-04-23 18:25 | disposition home or self-care (01) ==
LOC: JCHEMO 16:17 → J7W 16:19 → JCHEMO 18:25
PROVIDERS: ATTEND Internal Medicine Gastroenterology
DX: K51.90 Ulcerative colitis, unspecified, without complications (principal)
CPT/HCPCS: 36415; 80053; 85025; 86140; 96365; 96413; J3380

== ENCOUNTER 2017-04-29 08:12 | Emergency (ER) | payer BC ==
[2017-04-29 08:22] VITALS: BP 148/76; PULSE 110; TEMP 98.2; BMI 32.8
--- NOTE | 2017-04-29 08:50 | PDOC ---
History of Present Illness - General Chief Complaint: Allergic Reaction Stated Complaint: EMPLOYEE, RX REACTION Time Seen by Provider: 04/29/17 08:37 History Source: Patient Exam Limitations: No Limitations - History of Present Illness Initial Comments: 04/29/17 09:22 My chief complaint: Facial flushing feeling hot since taking first dose of Bactrim yesterday. History of Present Illness: Patient is a 37 year old female employee of [employer] with a history of ulcerative colitis,renal colic, asthma and abscesses due to MRSA here today complaining of feeling facial flushing today with feeling of heat to her face since taking first dose of Bactrim yesterday. Patient reports that she has the beginning of an abscess under her left axilla area and was started on Bactrim by her primary care provider Dr. Abreu yesterday. Patient denies any itchiness of her face or any difficulty breathing or swallowing. Patient has taken Bactrim in the past with no side effects. Patient was concerned and just wanted to come down to be checked out. Patient's primary care provider Dr. Abreu was called and she suggested getting a CBC with differential to make sure that there is no elevated white count. Patient denies any hives on any other part of her body. 04/29/17 09:30 Timing/Duration: getting worse Associated Symptoms: reports: rash (facal flushing ) Past History - Past Medical History Allergies/Adverse Reactions: Allergies Allergy/AdvReac Type Severity Reaction Status Date / Time No Known Allergies Allergy Verified 04/29/17 08:14 Home Medications: Ambulatory Orders NK [No Known Home Medication] 04/29/17 Asthma: Yes (BORDERLINE) COPD: No GI Disorders: Yes (ULCERATIVE COLITIS) Disorders: Yes (renal colic) Kidney Stones: Yes Other medical history: drug induced lupus,migraines, - Surgical History Abdominal Surgery: (PROCTOCOLECTOMY WITH [facility]) - Suicide/Smoking/Psychosocial Hx Smoking History: Never smoked Have you smoked in the past 12 months: No Information on smoking cessation initiated: No Hx Alcohol Use: Yes (SOCIAL) Drug/Substance Use Hx: No Substance Use Type: None Hx Substance Use Treatment: No Review of Systems - Review of Systems Able to Perform ROS?: Yes Constitutional: No: Symptoms Reported HEENTM: No: Symptoms Reported Respiratory: No: Symptoms reported Cardiac (ROS): No: Symptoms Reported ABD/GI: No: Symptoms Reported : No: Symptoms Reported Musculoskeletal: No: Symptoms Reported Integumentary: Yes: Erythema (left axilla ) *Physical Exam - Vital Signs Last Vital Signs Temp Pulse Resp BP Pulse Ox 98.2 F 110 H 18 148/76 100 04/29/17 08:14 04/29/17 08:14 04/29/17 08:14 04/29/17 08:14 04/29/17 08:14 - Physical Exam General Appearance: Yes: Appropriately Dressed Respiratory/Chest: positive: Lungs Clear, Normal Breath Sounds. negative: Chest Tender, Respiratory Distress Cardiovascular: positive: Regular Rhythm, Regular Rate, S1, S2 Integumentary: positive: Erythema (left axilla non fluculant 3 cm x 1.75 cm), Hives, Other (facial flushing ) Neurologic: positive: Alert, Normal Response, Responsive ED Treatment Course - LABORATORY CBC & Chemistry Diagram: 04/29/17 09:09 Medical Decision Making - Medical Decision Making 04/29/17 09:26 Patient is a 37 year old female employee of [employer] with a history of ulcerative colitis and abscesses due to MRSA here today complaining of feeling facial flushing today with feeling of heat to her face since taking first dose of Bactrim yesterday. Patient reports that she has the beginning of an abscess under her left axilla area and was started on Bactrim by her primary care provider Dr. Abreu yesterday. Patient denies any itchiness of her face or any difficulty breathing or swallowing. Patient has taken Bactrim in the past with no side effects. Patient was concerned and just wanted to come down to be checked out. Patient's primary care provider Dr. Abreu was called and she suggested getting a CBC with differential to make sure that there is no elevated white count. Patient denies any hives on any other part of her body. Patient has been afebrile Flushing of Face early abscess left axilla PLAN: called Dr. Abreu [employer] she recommended cbc with diff and applying warm soaks every 3 hours continue Bactrim DS as previous ordered Follow up with Dr. Abreu and ID if symptoms worsen 04/29/17 09:43 Laboratory Tests 04/29/17 09:09 WBC 11.7 H RBC 4.87 Hgb 14.0 Hct 42.4 MCV 87.0 MCH 28.8 MCHC 33.1 RDW 15.2 Plt Count 284 MPV 6.4 L Neutrophils % 68.2 Lymphocytes % 21.5 Monocytes % 8.8 Eosinophils % 0.8 D Basophils % 0.7 04/29/17 10:04 Dr. Abreu called with results of CBC with diff she did not have any additional recommendations at this time She reports feeling fatigued will go home and apply warm soaks every 3 hours Patient instructed to return back to emergency room if any fever or increased redness of left axilla yet area involved, hives, difficulty swallowing or breathing *DC/Admit/Observation/Transfer Diagnosis at time of Disposition: Abscess of axilla, left, Facial flushing - Discharge Dispostion Disposition: HOME Condition at time of disposition: Stable - Referrals Referrals: Susan Abreu [Primary Care Provider] - - Patient Instructions Additional Instructions: Apply warm soaks to left axilla area every 2-3 hours for 15 minutes each time while awake Return to emergency room if any fever or increased redness of area involved left axilla area, difficulty swallowing or breathing or any hives Follow up with your primary care provider as soon as possible Patient voiced understanding of discharge instructions and all questions were answered - Post Discharge Activity Forms/Work/School Notes: Back to Work
[2017-04-29 09:14] LABS: BASOPHIL 0.7 % (0-2.0); EOSINOPHIL 0.8 % (0-4.5); MCH 28.8 pg (25.7-33.7); MCHC 33.1 g/dl (32.0-36.0); MEAN PLT VOLUME 6.4 fl (7.5-11.1); NEUTROPHILS 68.2 % (42.8-82.8); PLATELET COUNT 284 K/MM3 (134-434); RDW 15.2 % (11.6-15.6); WHITE BLOOD COUNT 11.7 K/mm3 (4.0-10.0)
== END 2017-04-29 10:18 | disposition home or self-care (01) ==
LOC: JER 08:12 → JERFT 08:12
DX: L02.412 Cutaneous abscess of left axilla (principal); Z86.14 Personal history of Methicillin resistant Staphylococcus aureus infection; K51.90 Ulcerative colitis, unspecified, without complications; R23.2 Flushing
CPT/HCPCS: 36415; 85025; 99281-25

== ENCOUNTER 2017-06-27 17:16 | Day surgery (SDC) | payer BC ==
[2017-06-27] MEDS ORDERED: diphenhydrAMINE HCL 25 MG CAPSULE (FP) PO ONE (17:45)
[2017-06-27] MEDS ORDERED: VEDOLIZUMAB 300 MG in SODIUM CHLORIDE 250 ML IVPB ONE (18:00)
[2017-06-27 18:51] VITALS: BP 128/81; PULSE 98; TEMP 97.7
[2017-06-27 19:23] LABS: EOS % 2.2 % (0-4.5); HEMATOCRIT 39.6 % (32.4-45.2); HEMOGLOBIN 13.3 GM/dL (10.7-15.3); MCHC 33.5 g/dl (32.0-36.0); MEAN CELL VOLUME 86.5 fl (80-96); MEAN PLT VOLUME 8.4 fl (7.5-11.1); NEUT % 50.8 % (42.8-82.8); PLATELET COUNT 280 K/MM3 (134-434); RBC 4.58 M/mm3 (3.60-5.2); RDW 14.8 % (11.6-15.6); WHITE BLOOD COUNT 6.9 K/mm3 (4.0-10.0)
[2017-06-27 19:59] LABS: ALBUMIN 3.7 g/dl (3.4-5.0); ANION GAP 9 (8-16); BILIRUBIN,TOTAL 0.3 mg/dL (0.2-1.0); BLOOD UREA NITROGEN 15 mg/dL (7-18); CALCIUM 8.4 mg/dL (8.5-10.1); CHLORIDE 110 mmol/L (98-107); CO2 22 mmol/L (21-32); CREATININE 0.7 mg/dL (0.55-1.02); GLUCOSE,RANDOM 85 mg/dL (74-106); POTASSIUM 3.7 mmol/L (3.5-5.1); SGOT/AST 25 U/L (15-37); SGPT/ALT 51 U/L (12-78); SODIUM 141 mmol/L (136-145); TOT PROT 7.5 g/dl (6.4-8.2)
[2017-06-27 20:00] LABS: ALK PHOS 58 U/L (45-117)
== END 2017-06-27 20:28 | disposition home or self-care (01) ==
LOC: JCHEMO 17:16 → J7W 17:18 → JCHEMO 20:28
PROVIDERS: ATTEND Internal Medicine Gastroenterology
DX: K51.90 Ulcerative colitis, unspecified, without complications (principal)
CPT/HCPCS: 36415; 80053; 85025; 86140; 96413; 96417; J3380

== ENCOUNTER 2017-08-22 17:40 | Day surgery (SDC) | payer BC ==
[2017-08-22] MEDS ORDERED: diphenhydrAMINE HCL 25 MG CAPSULE (FP) PO ONE (18:00)
[2017-08-22] MEDS ORDERED: VEDOLIZUMAB 300 MG in SODIUM CHLORIDE 250 ML IVPB ONE (18:00)
[2017-08-22] MEDS ORDERED: EPINEPHrine 1:1,000 0.3 MG/0.3 ML SYR IM PRN (18:02)
[2017-08-22] MEDS ORDERED: methylPREDNISolone NA SUCC 40 MG/1 ML VIAL IVPUSH PRN (18:02)
[2017-08-22 18:58] VITALS: BP 107/69; PULSE 72; TEMP 98.2
[2017-08-22 19:52] LABS: BASO % 0.8 % (0-2.0); EOS % 1.5 % (0-4.5); HEMATOCRIT 39.2 % (32.4-45.2); HEMOGLOBIN 13.2 GM/dL (10.7-15.3); LYMPH % 33.1 % (8-40); MCH 28.4 pg (25.7-33.7); MCHC 33.7 g/dl (32.0-36.0); MEAN PLT VOLUME 7.2 fl (7.5-11.1); MONO % 9.1 % (3.8-10.2); NEUT % 55.5 % (42.8-82.8); PLATELET COUNT 382 K/MM3 (134-434); RBC 4.67 M/mm3 (3.60-5.2); RDW 14.3 % (11.6-15.6); WHITE BLOOD COUNT 7.5 K/mm3 (4.0-10.0)
[2017-08-22 20:19] LABS: ALBUMIN 3.9 g/dl (3.4-5.0); ANION GAP 8 (8-16); BILIRUBIN,TOTAL 0.4 mg/dL (0.2-1.0); BLOOD UREA NITROGEN 10 mg/dL (7-18); CALCIUM 8.9 mg/dL (8.5-10.1); CHLORIDE 108 mmol/L (98-107); CO2 24 mmol/L (21-32); CREATININE 0.7 mg/dL (0.55-1.02); GLUCOSE,RANDOM 99 mg/dL (74-106); POTASSIUM 3.5 mmol/L (3.5-5.1); SGOT/AST 17 U/L (15-37); SGPT/ALT 29 U/L (12-78); SODIUM 140 mmol/L (136-145)
[2017-08-22 20:20] LABS: ALK PHOS 55 U/L (45-117)
== END 2017-08-22 19:32 | disposition home or self-care (01) ==
LOC: JCHEMO 17:40 → J7W 17:42 → JCHEMO 19:32
PROVIDERS: ATTEND Internal Medicine Gastroenterology
DX: K51.90 Ulcerative colitis, unspecified, without complications (principal)
CPT/HCPCS: 36415; 80053; 85025; 86140; 96365; 96413; J3380